=== PATIENT | male | born 1960 | race Caucasian/White ===

== ENCOUNTER 2020-01-18 06:38 | Observation (INO) ==
--- NOTE | 2020-01-04 14:19 | PAT Medication Instructions ---
Medication Instructions Date of Service January 04, 2020 Home Medications Medication Instructions Recorded meloxicam 15 mg tablet 15 mg PO DAILY #30 tab 11/20/19 meloxicam 15 mg tablet 15 mg PO DAILY allopurinol 100 mg PO BID losartan 50 mg PO QPM trazodone 100 mg PO HS ASK your surgeon for instructions meloxicam 15 mg tablet 15 mg PO DAILY Take morning of surgery With a small sip of water, OTHERWISE NOTHING TO EAT OR DRINK AFTER MIDNIGHT: allopurinol 100 mg PO BID Take evening before surgery allopurinol 100 mg PO BID losartan 50 mg PO QPM trazodone 100 mg PO HS Other Notes If you have any questions please call us at [phone] or [phone] or [phone] or [phone]
--- NOTE | 2020-01-07 09:30 | Anesthesiology Consultation ---
Date of Service January 07, 2020 Assessment & Plan (1) Encounter for pre-operative examination: COVID Status: As of 01/06 assessment, patient denies travel to endemic area, known exposure/sick contacts, or symptoms of COVID19. Patient instructed to follow strict social distancing guidelines, wear a mask in public and avoid travel for 14 days prior to surgery. Preoperative COVID19 testing to be completed prior to surgery. Patient made aware to self-isolate as much as possible between COVID testing and surgery. Chart Review Chart Review: Acceptable Risk for Surgery and Patient seen in Pre Admission Testing Teaching & Discussion Instructed NPO after midnight before surgery, except medications with 15 cc of water. Medication instructions provided according to the PAT guidelines. History Surgery Operation Date: 01/18/20 10:40 Proposed Procedures p Right Anterior Total Hip Arthroplasty - Reagan Mcgowan DO Height/Weight Height: 6 ft Weight: 105.1 kg Allergies Allergy/AdvReac Type Severity Reaction Status Date / Time No Known Allergies Allergy Verified 01/01/20 07:20 Medications Home Medications Medication Instructions Recorded Confirmed Last Taken meloxicam 15 mg tablet 15 mg PO DAILY #30 tab 11/20/19 01/01/20 Unknown allopurinol 100 mg PO BID 01/01/20 01/01/20 Unknown losartan 50 mg PO QPM 01/01/20 01/01/20 Unknown trazodone 100 mg PO HS 01/01/20 01/01/20 Unknown Past Medical History Medical History Gout Hyperlipidemia hx - no problems currently Hypertension Osteoarthritis Exercise / Class Metabolic Activity II 4-5 Yardwork/Stairs/Walk up hill (Denies Cp or SOB with 1 FOS) Past Family History Family History Other No family history of adverse response to anesthesia Past Surgical History Surgical History History of adenoidectomy History of colonoscopy History of esophagogastroduodenoscopy (EGD) History of repair of rotator cuff +bicep tendon repair on right shoulder S/P left knee arthroscopy S/P right knee arthroscopy Past Anesthesia History No Hx of Anesthesia Complications and No Family Hx of Anesthesia Complications History of PONV No Hx of PONV and No Hx of Motion Sickness Social History Smoking Status: Never smoker Do You Dip or Chew Tobacco: No Hx Alcohol Use: Yes Alcohol type: beer alcohol intake frequency: a few times a week Hx Substance Use: No substance use type: does not use Review of Systems Pt denies any recent chest pain, shortness of breath, palpitations, cough, fever or URI. Physical Exam Vital Signs BP: 144/83 P: 64bpm SPO2: 100% RA T: 97.9 F R: 12 ENMT Mouth: + dental restorations (Front upper incisors capped); no chipped teeth and no loose teeth Thyromental Distance: < 3.5 Finger Breadths (3) Mallampati Class: I Mouth / Teeth: 1. Caps Neck normal visual inspection; neck extension not limited Respiratory normal respiratory effort Auscultation: lungs clear to auscultation bilaterally Cardiovascular Rate/Rhythm: regular rate and regular rhythm Heart Sounds: no murmur Vessels: no carotid bruit Extremities: no edema Testing Laboratory Results 01/07/20 09:40 01/07/20 09:40 PT 10.5 Seconds (9.0-12.0) 01/07/20 09:40 INR 1.0 (0.9-1.1) 01/07/20 09:40 APTT 28.5 Seconds (21.0-31.0) 01/07/20 09:40 Blood Type O Negative 01/07/20 09:40 Antibody Screen NEGATIVE 01/07/20 09:40 Electrocardiogram Date: 01/07/20 Findings: + NSR @ (62bpm with 1st degree AV block) Otherwise normal EKG. Compared to EKG from 07/16/15, AK interval has increased. Chest X-Ray Date: 01/07/20 Findings: + NAD
--- NOTE | 2020-01-07 10:08 | XRay Report ---
XR chest 2V PA/lateral HISTORY: Preop. COMPARISON: None. FINDINGS: The lungs are clear. Cardiac silhouette is normal in size. No pleural effusions. No pneumot horax. IMPRESSION: No acute process. ACT 112: Negative or not required by law. Electronically signed by: Salvador Fermin M.D. 01/07/2020 10:06 AM
[2020-01-07 11:24] LABS: Basophils # (auto) 0.05 K/uL (0-0.2); Eosinophils % (auto) 1.9 %; Hemoglobin 14.8 g/dL (14.0-18.0); Immature Granulocytes # (auto) 0.01 K/uL (0.00-0.02); Immature Granulocytes % (auto) 0.2 %; Lymphocytes # (auto) 1.97 K/uL (1.2-3.4); Lymphocytes % (auto) 38.2 %; Mean Corpuscular Hemoglobin 31.8 pg (25-34); Mean Corpuscular Hgb Conc 34.4 g/dL (32-36); Mean Corpuscular Volume 92.3 fL (80-100); Monocytes % (auto) 7.8 %; Neutrophils # (auto) 2.63 K/uL (1.4-6.5); Neutrophils % (auto) 50.9 %; Platelet Count 206 K/uL (130-400); RDW Coefficient of Variation 13.3 % (11.5-14.5); RDW Standard Deviation 44.7 fL (36.4-46.3); Red Blood Count 4.66 M/uL (4.7-6.1); White Blood Count 5.16 K/uL (4.8-10.8)
[2020-01-07 11:31] LABS: BUN Creatinine Ratio 16.9 (10-20); Calcium 8.8 mg/dl (8.5-10.1); Creatinine Clr Calc Pharmacy 83.7 ml/min; Est GFR (African American) 75.8; Est GFR (Non-African American) 65.4; Potassium 4.7 mmol/L (3.5-5.1)
[2020-01-07 11:35] LABS: Partial Thromboplastin Time 28.5 Seconds (21.0-31.0); Prothrombin Time 10.5 Seconds (9.0-12.0)
--- NOTE | 2020-01-07 14:37 | Electrocardiogram Report ---
Test Reason : Blood Pressure : / mmHG Vent. Rate : 062 BPM Atrial Rate : 062 BPM P-R Int : 214 ms QRS Dur : 076 ms QT Int : 418 ms P-R-T Axes : 030 -06 023 degrees QTc Int : 424 ms Sinus rhythm with 1st degree A-V block Otherwise normal ECG When compared with ECG of 16-JUL-2015 11:46, GA interval has increased Otherwise no significant change Confirmed by Gunner Robledo ([id number]) on 01/07/2020 2:37:41 PM Referred By: Reagan Mcgowan Confirmed By:Gunner Robledo
--- NOTE | 2020-01-17 06:32 | History & Physical Report ---
Date of Service January 17, 2020 Assessment & Plan (1) Osteoarthritis of right hip: We will proceed with a right anterior total of arthroplasty. Postoperatively he will be placed on aspirin for DVT prophylaxis. He will be kept overnight in the hospital for postoperative medical management. Jose is a low risk for joint placement surgery without any major comorbidities. Present on Admission?: Yes History of Present Illness Chief Complaint: Primary osteoarthritis of the right hip Primary Care Provider: Clair Sierra PA-C Jose is a pleasant 59-year-old male who is been dealing with chronic increasing right hip and groin pain. X-rays and clinical examination have been diagnostic for advanced osteoarthritis of the right hip. After failing conservative treatment, he has elected to proceed with a right anterior total hip arthroplasty. Allergies Allergy/AdvReac Type Severity Reaction Status Date / Time No Known Allergies Allergy Verified 01/01/20 07:20 Home Medications Home Medications Medication Instructions Recorded Confirmed Type meloxicam 15 mg tablet 15 mg PO DAILY #30 tab 11/20/19 01/01/20 Rx allopurinol 100 mg PO BID 01/01/20 01/01/20 History losartan 50 mg PO QPM 01/01/20 01/01/20 History trazodone 100 mg PO HS 01/01/20 01/01/20 History Past Med/Surg History Medical History Gout Hyperlipidemia hx - no problems currently Hypertension Osteoarthritis Surgical History History of adenoidectomy History of colonoscopy History of esophagogastroduodenoscopy (EGD) History of repair of rotator cuff +bicep tendon repair on right shoulder S/P left knee arthroscopy S/P right knee arthroscopy Family History Other No family history of adverse response to anesthesia Social History Preferred Language: Wallisian Communication Ability: Effective Leadite Heater Required: No Beliefs That Will Affect Care: None Current Living Situation: Spouse Feels Safe at Home: Yes Smoking Status: Never smoker Second Hand Exposure: No ; Hx Alcohol Use: Yes Alcohol type: beer Hx Substance Use: No Review of Systems Review of Systems: All systems reviewed & are unremarkable except as noted in HPI & below Physical Exam Constitutional: WD/WN, vitals as above Eyes: PERRL, conjunctivae normal, anicteric sclerae ENMT: external ear and nose normal, oropharynx normal Neck: trachea midline, no thyromegaly Respiratory: normal respiratory effort Cardiovascular: RRR, no murmur, no edema Gastrointestinal (Abdomen): normal bowel sounds, soft, nontender, no hepatosplenomegaly Musculoskeletal: Physical examination of the right hip reveals decreased range of motion with flexion, internal and external rotation. There is significant groin pain with forced internal rotation of the hip his leg lengths are essentially equal. Psychiatric: A+Ox3, euthymic affect Results & Data Results & Data ([facility]) Diagnostic Findings Radiographs of the right hip and pelvis demonstrate advanced osteoarthritis with joint space narrowing osteophyte formation and [id number] articulation. PG Care Time/CCT Total # of Minutes Spent Total Time Spent with Patient: Total time spent is greater than 50% in coordination of care (as documented) at patient's floor/unit and/or counseling patient: Coding Level of Care Code 12882 Initial Inpt Care Lvl 3 Diagnoses Osteoarthritis of right hip M16.11
[~2020-01-18 06:38] MED LIST: ACETAMINOPHEN 500 MG TAB PO SCH; BUPIVACAINE 0.5 % 5 MG/1 ML PF 10ML VIAL ONE; CEFAZOLIN 2000MG 2,000 MG/15 ML SYR IV SCH; FAMOTIDINE 20 MG TAB PO SCH; GABAPENTIN 600 MG DOSE PO SCH; LR 500ML BOLUS, THEN 15ML/HR IV SCH; LR 60ML/HR IV SCH; ROPIVACAINE 0.5% HCL/PF 150 MG, BUPIVACAINE 0.5% MPF 30 ML, EPINEPHrine 30MG/30ML (OR U... INSTIL SCH; TRANEXAMIC ACID 1,000 MG **IV Intra-op IV SCH; TRANEXAMIC ACID 1,000 MG **IV Pre-op IV SCH; dexAMETHasone 4 MG TAB PO SCH
--- NOTE | 2020-01-18 06:53 | History & Physical Bridge Note ---
Date of Service January 18, 2020 History & Physical Bridge Note I have examined the patient, reviewed the History & Physical and in the interval since the performance of the History & Physical I have noted the following changes of clinical significance: no changes noted
[2020-01-18] MEDS ORDERED: LIDOCAINE HCL 2% 2 ML VIAL/AMP(20MG/ML) INFIL ONE (07:37)
[2020-01-18] MEDS ORDERED: PROPOFOL IV EMULSION 10 MG/ML 20 ML VIAL IV ONE ×3 (07:37→10:18)
[2020-01-18] MEDS ORDERED: fentaNYL citrate 100 MCG/2 ML VIAL ONE (07:37)
[2020-01-18] MEDS ORDERED: MIDAZOLAM HCL 1 MG/ML 2ML VIAL ONE ×2 (07:37→09:15)
[2020-01-18] MEDS ORDERED: fentaNYL citrate 100 MCG/2 ML VIAL IV PRN (08:34)
[2020-01-18] MEDS ORDERED: ATROPINE SULFATE 0.1 MG/ML 10ML SYR IV PRN (08:34)
[2020-01-18] MEDS ORDERED: ONDANSETRON INJ 2 MG/ML 2 ML VIAL IV PRN ×2 (08:34→11:48)
[2020-01-18] MEDS ORDERED: ePHEDrine sulfate 50 MG/ML AMP IV PRN (08:34)
[2020-01-18] MEDS ORDERED: ORTHO JOINT ANESTHETIC ONE (08:53)
--- NOTE | 2020-01-18 10:20 | Operative Report ---
PG Post Operative Report Pre & Post Diagnosis Operation Date: 01/18/20 08:40 Pre-Op Diagnosis: Degenerative Joint Disease, Right Hip Post-Op Diagnosis: Degenerative Joint Disease, Right Hip I identified the patient and participated in the time-out.: Yes Procedure Operation Date: 01/18/20 08:40 Actual Procedures p Right Anterior Total Hip Arthroplasty(Right) - Reagan Mcgowan DO Surgeon Reagan Mcgowan DO [employer] Reagan Downs PAC Estimated Blood Loss 200 Findings Consistent with Post-Op Diagnosis Specimens Right femoral head Complications none Disposition Disposition: Recovery Room Indications Jose is a pleasant 59-year-old male who is been dealing with chronic increasing right hip and groin pain. X-rays and clinical examination have been diagnostic for advanced osteoarthritis of the right hip. After failing conservative treatment, he has elected to proceed with a right anterior total hip arthroplasty. Description of Procedure Implants used I used a Biomet Taperloc total hip arthroplasty system with a size 15 high offset micro Taperloc stem, a 56 mm G7 cup with a 25mm screw, an E1 polyethylene liner, a 40 mm ceramic head with a +3 neck. Jose arrived at the hospital for the above procedure. He was seen in the preoperative holding area and the operative extremity was identified and signed. He was given a spinal anesthetic, a preoperative antibiotic, and TXA. He was then taken back to the operating room and laid on the table in the supine position. He was given basic sedation. The operative leg was secured to a Puristst leg positioner. The hip was then prepped and draped in sterile fashion. A timeout was done and the patient and the operative extremity was properly identified. An anterior approach was used. Dissection was taken down through the fascia and the tensor muscle belly was retracted laterally and the rectus was retracted medially. The circumflex vessels were identified and ligated. The capsule was then incised and tagged for later repair. The femoral neck was then cut and the femoral head was removed. The acetabulum was exposed. Time was spent doing a complete circumferential labral release. Sequential reaming of the acetabulum u p to a size 55 reamer was done. Final reamings were done under fluoroscopy to ensure appropriate version. A Biomet 56 mm G7 cup was then impacted into place. A single 25 mm screw was placed. The E1 polyethylene liner was then snapped into place. Surrounding soft tissues were then injected with 100 cc of an orthopedic pain control cocktail. The proximal femur was then exposed. Sequential broaching up to a size 15 broach was done. Off that broach a size 40 head with a +3 neck was trialed. The hip was reduced and fluoroscopic images showed anatomic alignment of the implants in acceptable length. The broach was removed. The final size 15 high offset micro Taperloc stem was then impacted into place. A ceramic 40 mm head with a +3 neck was then impacted onto the stem and the hip was reduced. Final fluoroscopic images showed anatomic alignment of the hip. The capsule was then closed with #1 Vicryl suture. A dilute betadyne lavage was then done for 3 minutes. The joint was then irrigated with normal saline solution. The fascia was closed with #1 PDS suture. Skin was closed with 2-0 Vicryl, tiff, and a Silverlon dressing. He was then transferred to a hospital bed and taken to the post anesthesia care unit in stable condition. He tolerated the procedure well. Reagan Downs PA-C, was present for the entire procedure. He was critical for patient positioning, prepping, draping, retraction exposure, wound closure and application of sterile dressing. I attest to the content of the Intraoperative Record and any orders documented therein. Any exceptions are noted below.
--- NOTE | 2020-01-18 11:11 | Fluoroscopy Report ---
FL hip RT 1V HISTORY: 59 years-old Male RT ANTERIOR right hip total joint arthroplasty COMPARISON: Pelvis and right hip radiographs 11/20/2019 TECHNIQUE: 2 spot fluoroscopic images of the right hip were obtained utilizing 23.3 seconds fluorosco py time FINDINGS: Right hip total joint arthroplasty demonstrates satisfactory alignment. No acute fracture or retained foreign body identified. IMPRESSION: Fluoroscopic assistance as above. Please see operative report for further details. ACT 112: Negative or not required by law. The above report was generated using voice recognition software. It may contain grammatical, syntax o r spelling errors. Electronically signed by: Efrain Jones M.D. 01/18/2020 11:10 AM
--- NOTE | 2020-01-18 11:15 | XRay Report ---
XR hip 1V RT w pelvis HISTORY: 59 years-old Male IN PACU - A/P PELVIS and LATERAL HIP right hip total joint arthroplasty COMPARISON: Pelvis and hip radiographs 11/20/2019 TECHNIQUE: AP view of the pelvis with crosstable lateral view of the right hip FINDINGS: Right hip total arthroplasty demonstrates satisfactory alignment. No acute fracture or retained forei gn body identified. Lateral skin tiff are noted along with expected postsurgical soft tissue swell ing and deep tissue air. Mild to moderate left osteoarthritis. Probable phlebolith of the left hemipe lvis. IMPRESSION: Right hip total joint arthroplasty with expected postoperative findings. ACT 112: Negative or not required by law. The above report was generated using voice recognition software. It may contain grammatical, syntax o r spelling errors. Electronically signed by: Efrain Jones M.D. 01/18/2020 11:14 AM
--- NOTE | 2020-01-18 11:33 | Anesthesiology Progress Note ---
Date of Service January 18, 2020 Anesthesia Post Procedure Vital Signs Vital Signs: Temp Pulse Pulse Resp BP Pulse Ox 01/18/20 11:10 36.2 C L 59 L 12 126/75 97 01/18/20 11:00 63 15 112/71 97 01/18/20 10:50 73 14 127/71 98 01/18/20 10:41 36.7 C 83 12 109/69 96 01/18/20 07:37 36.6 C 64 18 142/90 H 98 Pain Intensity Right Hip: Pain Intensity: 4 Transfer of Care Handoff Completed per policy Notes Mental Status: alert / awake / arousable Patient Amnestic to Procedure: Yes Nausea / Vomiting: adequately controlled Pain: adequately controlled Airway Patency, RR, SpO2: stable & adequate BP & HR: stable & adequate Hydration State: stable & adequate Neuraxial Anesthesia: was administered and sensory block is resolving Anesthetic Complications: no major complications apparent
[2020-01-18] MEDS ORDERED: HYDROmorphone INJ 0.5 MG/0.5 ML SYR IV PRN (11:48)
[2020-01-18] MEDS ORDERED: METOCLOPRAMIDE HCL INJ 5 MG/ML 2 ML VIAL IV PRN (11:48)
[2020-01-18] MEDS ORDERED: NALOXONE HCL 0.4 MG/1 ML VIAL/CARP IV PRN (11:48)
[2020-01-18] MEDS ORDERED: MAGNESIUM HYDROXIDE SUSP 30 ML UDC PO PRN (11:48)
[2020-01-18] MEDS ORDERED: bisacodyL 10 MG SUPP PR PRN (11:48)
[2020-01-18] MEDS: SODIUM CHLORIDE 0.9% 1000ML 1,000 ML IV SCH ×2 (12:13→21:48)
[2020-01-18] MEDS: KETOROLAC 30 MG/ML VIAL IV SCH ×2 (12:13→18:06)
[2020-01-18] MEDS: ACETAMINOPHEN 500 MG TAB PO SCH ×2 (13:44→21:49)
[2020-01-18] MEDS: OXYCODONE HCL IR 5 MG TAB (IMMEDIATE RELEASE) PO PRN ×2 (13:44→18:11)
[2020-01-18] MEDS: CEFAZOLIN 2000MG 2,000 MG/15 ML SYR IV SCH (16:25)
[2020-01-18] MEDS: DOCUSATE SODIUM 100 MG CAP PO SCH (20:07)
[2020-01-18] MEDS: ASPIRIN 81 MG ECTAB PO SCH (20:09)
[2020-01-18] MEDS: allopurinoL 100 MG TAB PO SCH (20:10)
[2020-01-18] MEDS ORDERED: TRAZODONE HCL 100 MG TAB PO SCH (21:00)
[2020-01-18] MEDS ORDERED: SENNA 8.6 MG TAB PO SCH (21:00)
[2020-01-18] MEDS ORDERED: LOSARTAN POTASSIUM 50 MG TAB PO SCH (21:00)
[2020-01-19] MEDS: KETOROLAC 30 MG/ML VIAL IV SCH ×3 (00:26→11:47)
[2020-01-19] MEDS: CEFAZOLIN 2000MG 2,000 MG/15 ML SYR IV SCH (00:27)
[2020-01-19] MEDS: ACETAMINOPHEN 500 MG TAB PO SCH (05:40)
[2020-01-19 06:09] LABS: Immature Granulocytes # (auto) 0.03 K/uL (0.00-0.02); Immature Granulocytes % (auto) 0.3 %; Lymphocytes # (auto) 1.31 K/uL (1.2-3.4); Lymphocytes % (auto) 12.1 %; Mean Corpuscular Hemoglobin 31.7 pg (25-34); Mean Corpuscular Hgb Conc 35.3 g/dL (32-36); Mean Corpuscular Volume 89.7 fL (80-100); Mean Platelet Volume 9.3 fL (7.4-10.4); Monocytes # (auto) 0.81 K/uL (0.11-0.59); Monocytes % (auto) 7.5 %; Neutrophils # (auto) 8.65 K/uL (1.4-6.5); Neutrophils % (auto) 80.1 %; Platelet Count 180 K/uL (130-400); RDW Coefficient of Variation 13.4 % (11.5-14.5); RDW Standard Deviation 43.5 fL (36.4-46.3); Red Blood Count 3.79 M/uL (4.7-6.1)
[2020-01-19 06:27] LABS: BUN Creatinine Ratio 17.1 (10-20); Calcium 7.8 mg/dl (8.5-10.1); Creatinine Clr Calc Pharmacy 94.2 ml/min; Est GFR (African American) 88.8; Est GFR (Non-African American) 76.7; Potassium 4.3 mmol/L (3.5-5.1)
--- NOTE | 2020-01-19 07:21 | Orthopedic Progress Note ---
Date of Service January 19, 2020 Assessment & Plan (1) History of right hip replacement: Overall he is doing very well. He is not having much pain in the right hip. He will be seen by physical therapy this morning for ambulation and range of motion exercises. He is on aspirin for DVT prophylaxis. He can be discharged home later today. He will follow-up with orthopedics in 2 weeks. Present on Admission?: Yes Subjective Jose was seen and examined at bedside this morning. Overall is doing very well. Is not having much pain in the right hip. He is already been up and ambulating around the nurses station. He has no complaints. Physical Exam Musculoskeletal: On physical examination of the right hip, the dressing has a little bit of bloody drainage on it but is well sealed. His leg lengths are equal. He has active dorsiflexion and plantarflexion of his right ankle. Results & Data ([facility]) Vital Signs (Past 12 Hours) Vital Signs Temp Pulse Resp BP BP Pulse Ox 01/19/20 06:20 36.4 C L 68 14 131/74 97 01/19/20 03:58 36.4 C L 61 16 118/72 98 01/18/20 23:10 36.4 C L 61 16 115/66 97 01/18/20 20:00 65 16 127/74 99 Laboratory Results H & H 01/07/20 01/19/20 Range/Units 09:40 05:46 Hgb 14.8 12.0 L (14.0-18.0) g/dL Hct 43.0 34.0 L (42-52) % Coagulation 01/07/20 Range/Units 09:40 INR 1.0 (0.9-1.1) Diagnostic Findings Postoperative x-rays of the right hip show the prosthesis to be in anatomic alignment without any evidence of fracture, dislocation, or loosening. PG Care Time/CCT Total # of Minutes Spent Total Time Spent with Patient: Total time spent is greater than 50% in coordination of care (as documented) at patient's floor/unit and/or counseling patient: Coding Level of Care Code None Diagnoses History of right hip replacement Z96.641
--- NOTE | 2020-01-19 07:22 | Discharge Summary ---
Date of Service January 19, 2020 Admission HPI Per Admitting Provider Jose is a pleasant 59-year-old male who is been dealing with chronic increasing right hip and groin pain. X-rays and clinical examination have been diagnostic for advanced osteoarthritis of the right hip. After failing conservative treatment, he has elected to proceed with a right anterior total hip arthroplasty. Principal Diagnosis Right total hip arthroplasty Discharge Data Allergies Allergy/AdvReac Type Severity Reaction Status Date / Time No Known Allergies Allergy Verified 01/18/20 07:29 Consultations 01/19/20 08:00 Consult Case Management - Discharge Planning Routine Procedures Performed Operation Date: 01/18/20 08:40 Actual Procedures p Right Anterior Total Hip Arthroplasty(Right) - Reagan Mcgowan DO Ordered Studies 01/18/20 08:40 FL fluoroscopy <1hr Routine FL hip RT 1V Routine Hospital Course (1) History of right hip replacement: On January 18, 2020 Jose arrived at [facility] and underwent a right anterior total hip arthroplasty without complication. He had a spinal anesthetic. Postoperatively he was started on aspirin for DVT prophylaxis and transferred to the general orthopedic floors. His hospital course was uneventful. On postop day #1 his H&H was stable and his pain was well controlled. He was able to participate well with physical therapy doing ambulation and range of motion exercises. He was then discharged home. He will follow-up with orthopedics in 2 weeks. Total Time Total Time Spent Total Time Spent (In Minutes): 20 Discharge Plan Discharge Items Patient Disposition: Home - Home Health Services Reason For Visit: Degenerative Joint Disease, Right Hip Discharge Diagnosis: Right total hip arthroplasty Activity: As commented below Non-emergency contact: Surgeon Call non-emergency contact if: your wound has increased redness and your wound has increased drainage Follow-up/Referrals: Clair Sierra PA-C [Primary Care Provider] - Diet: Regular Addtl Attending Provider Instructions: Activity and Therapy Recommendations: * If you are using [facility] then therapy will be provided at your home until they feel you have accomplished all of your goals. * If you are using [facility] then Physical Therapy will be provided until they feel you are ready to start Outpatient Physical Therapy. * If you are not using home therapy then Outpatient Physical Therapy should start about 3-5 days from your day of surgery. Therapy will last about 6-10 weeks * You were shown a series of exercises in the hospital. Do these exercises three times each day including the exercises you were shown in physical therapy. * Get up and walk several times each day.~ For the first four weeks, try not to stand or walk for more than one hour at a time. If you do stand or walk for more than one hour, you will not hurt anything, but your leg will likely swell.~~ * As you feel comfortable, you may change from the walker or crutches to a cane and~then to independent walking. Medications: * Narcotic You will likely be sent home from the hospital with a prescription for the narcotic pain medication that worked best throughout your stay. * Aspirin Most patients will be required to take Aspirin 81mg twice a day for 6 weeks after surgery. This is obtained [id number] and a prescription is not necessary. * Other medications may be prescribed for specific circumstances. If you have any questions, please call the office at . * Resume previous home medications unless otherwise instructed TEDs/Elastic Stockings: The white elastic stockings help limit swelling and prevent blood clots from forming in your legs. The more you wear them, the more they work. Wear them for six weeks. Dressing Care: Leave the Silverlon dressing in place for 7 days. After 7 days you may remove the dressing. Then, you may leave the tiff open to air or cover them with a dry dressing so they do not rub on your pants. The tiff will be removed at your 2 week follow-up appointment. Showering: You may shower immediately with the Silverlon dressing. Let the shower spray hit your opposite side and slowly pat the dressing dry. Do not soak the dressing. After the dressing is removed you may shower normally with the tiff exposed. Let soapy water run over the tiff and pat them dry. Things To Watch For: * Drainage from the incision site that occurs more than one week after your surgery. * Increased redness at the incision site. * Fever above 102 degrees Fahrenheit. * Unusual chest pain or shortness of breath. * Call [facility] at with any of the above problems Follow-Up Visit: Follow-up with Dr. Mcgowan's PA (Reagan Downs) 2-3 weeks after your day of dionne tan. He will remove your tiff and answer any questions. If you have any additional questions or concerns, Dr Mcgowan is usually in the office at the same time and will be available An appointment was probably scheduled when you signed-up for surgery in the office. If you have any questions call Office Instructions: More detailed instructions as well as Frequently Asked Questions were provided in a folder by our office when you signed-up for surgery. Please review these instructions when you get home. If you have any further questions or concerns, please feel free to call the office at [phone] Pending Studies at Discharge: No Stand-Alone Forms: My [facility] Kira Talent, Smoking Cessation Medications and DC Order Prescriptions: New oxycodone 5 mg Tablet 5 mg PO Q4H PRN (Reason: pain) Qty: 30 RF: 0 aspirin 81 mg Tablet,Delayed Release (Dr/Ec) 81 mg PO BID 42 Days Qty: 0 RF: 0 Continued meloxicam [Mobic] 15 mg tablet 15 mg PO DAILY Qty: 30 RF: 3 losartan 50 mg Tablet 50 mg PO QPM RF: 0 allopurinol 100 mg Tablet 100 mg PO BID RF: 0 trazodone 100 mg Tablet 100 mg PO HS RF: 0 Discharge Orders: Discharge Order (Routine); Ordered 01/19/20 Ordered By: Reagan Mcgowan Admission Data Admit Date/Time: 01/18/20 10:45 Attending Provider: Reagan Mcgowan Admit Provider: Reagan Mcgowan Primary Care Provider: Clair Sierra Coding Level of Care Code D/C Day Management <30 mins Diagnoses History of right hip replacement Z96.641
[2020-01-19] MEDS ORDERED: dexAMETHasone 4 MG TAB PO SCH (08:00)
[2020-01-19] MEDS: allopurinoL 100 MG TAB PO SCH (08:41)
[2020-01-19] MEDS: ASPIRIN 81 MG ECTAB PO SCH (08:41)
[2020-01-19] MEDS: DOCUSATE SODIUM 100 MG CAP PO SCH (08:42)
[2020-01-19] MEDS ORDERED: MULTIVITAMIN TAB PO SCH (09:00)
[2020-01-19] MEDS: OXYCODONE HCL IR 5 MG TAB (IMMEDIATE RELEASE) PO PRN (10:29)
== END 2020-01-19 13:35 | disposition home health service (06) ==
LOC: 3E 06:38 → ASU 06:38